=== PATIENT | female | born 1990 ===

== ENCOUNTER 2019-01-19 13:39 | Observation (INO) ==
[2019-01-19 14:53] LABS: Basophils % 0.3 %; Eosinophils # 0.2 K/mcL (0.0-0.6); Eosinophils % 1.7 %; Hematocrit 38.2 % (35.3-44.9); Hemoglobin 12.7 g/dL (11.5-15.4); Immature Granulocytes % 0.9 % (0-4); Lymphocytes # 1.6 K/mcL (0.6-4.6); Lymphocytes % 13.6 %; Mean Corpuscular HGB Conc 33.2 g/dL (31.6-35.5); Mean Corpuscular Hemoglobin 29.4 pg (28.0-33.3); Mean Corpuscular Volume 88.4 fL (83.0-100.0); Mean Platelet Volume 10.3 fL (9.4-12.4); Monocytes # 0.6 K/mcL (0.0-1.3); Monocytes % 5.6 %; Platelet Count 249 K/mcL (140-400); Red Blood Count 4.32 M/mcL (3.82-4.97); Red Cell Distribution Width 13.3 % (11.5-14.5); Segmented Neutrophils % 77.9 %
[2019-01-19 15:42] LABS: Alanine Aminotransferase 8 Units/L (7-52); Aspartate Amino Transferase 12 Units/L (13-39); BUN/Creatinine Ratio 15 (6-26); Blood Urea Nitrogen 8 mg/dL (6-20); Lactate Dehydrogenase 116 Units/L (140-271); Uric Acid 5.5 mg/dL (2.3-7.6); eGFR For Non-African Americans > 60 (> 60)
[2019-01-19 15:43] LABS: Amphetamine Screen,Urine Negative ng/mL (Cutoff=1000); Barbiturate Screen,Urine Negative ng/mL (Cutoff=200); Benzodiazepines Screen,Urine Negative ng/mL (Cutoff=200); Cannabinoid Screen,Urine Negative ng/mL (Cutoff = 50); Cocaine Screen,Urine Negative ng/mL (Cutoff= 300); Opiate Screen,Urine Negative ng/mL (Cutoff=300); Phencyclidine Screen,Urine Negative ng/mL (Cutoff=25)
[2019-01-19] MEDS ORDERED: Betamethasone Acet/SodPhos 30 MG/5 ML VIAL IM SCH (16:30)
[2019-01-19 17:28] LABS: Protein/Creatinine Ratio,Urine 0.18 mg/mg (0.00-0.20)
--- NOTE | 2019-01-19 18:36 | Discharge Summary ---
Date of Encounter: 01/19/19 Time of Encounter: 18:35 - Discharge Diagnosis (1) 28 weeks gestation of Priority: Primary Status: Acute Comments: Follow-up with Dr. Moreno as scheduled on January 28 Betamethasone given IM 1 and patient is to return tomorrow for her second dose to labor and delivery Discharge home (2) Gestational hypertension Priority: Secondary Status: Acute Comments: PIH evaluation was fully negative Start labetalol 200 mg twice a day by mouth Keep follow-up appointment with Dr. Moreno next week Return for headache, blurry vision, right upper quadrant pain Qualifiers: Trimester: third trimester Qualified Code(s): O13.3 - Gestational [-induced] hypertension without significant proteinuria, third trimester - Discharge Medications Prescriptions: New Betamethasone Acet/SodPhos [Celestone Soluspan] 12 mg IM Q24H vial Labetalol HCl 200 mg PO BID #60 tablet Continued Vit Calc,Iron,Folic [ Vitamins] 1 tab PO DAILY Aspirin [Lo-Dose Aspirin EC] 81 mg PO DAILY Home Medications: Vit Calc,Iron,Folic [ Vitamins] 1 tab PO DAILY 11/17/15 [History] Aspirin [Lo-Dose Aspirin EC] 81 mg PO DAILY 01/19/19 [History] Betamethasone Acet/SodPhos [Celestone Soluspan] 12 mg IM Q24H vial 01/19/19 [Rx] Labetalol HCl 200 mg PO BID #60 tablet 01/19/19 [Rx] Allergies/Adverse Reactions: Allergy/AdvReac Type Severity Reaction Status Date / Time No Known Allergies Allergy Verified 11/17/15 15:06 Data Procedures and tests throughout hospitalization: Laboratory Tests 01/19/19 01/19/19 01/19/19 04:00 14:15 14:15 WBC 11.5 H RBC 4.32 Hgb 12.7 Hct 38.2 MCV 88.4 MCH 29.4 MCHC 33.2 RDW 13.3 Plt Count 249 MPV 10.3 Immature Gran % 0.9 Seg Neutrophils % 77.9 Lymphocytes % 13.6 Monocytes % 5.6 Eosinophils % 1.7 Basophils % 0.3 Neutrophils # 9.0 H Lymphocytes # 1.6 Monocytes # 0.6 Eosinophils # 0.2 Basophils # 0.0 BUN Creatinine Est GFR ( Amer) Est GFR (Non-Af Amer) BUN/Creatinine Ratio Uric Acid AST ALT Lactate Dehydrogenase Urine Creatinine 191 Protein/Creatinin Ratio 0.18 Urine Total Protein 34 H Urine Opiates Screen Negative Ur Barbiturates Screen Negative Ur Phencyclidine Scrn Negative Ur Amphetamines Screen Negative U Benzodiazepines Scrn Negative Urine Cocaine Screen Negative U Marijuana (THC) Screen Negative Ur Drug Screen Interp See Below 01/19/19 14:15 WBC RBC Hgb Hct MCV MCH MCHC RDW Plt Count MPV Immature Gran % Seg Neutrophils % Lymphocytes % Monocytes % Eosinophils % Basophils % Neutrophils # Lymphocytes # Monocytes # Eosinophils # Basophils # BUN 8 Creatinine 0.54 L Est GFR ( Amer) > 60 Est GFR (Non-Af Amer) > 60 BUN/Creatinine Ratio 15 Uric Acid 5.5 AST 12 L ALT 8 Lactate Dehydrogenase 116 L Urine Creatinine Protein/Creatinin Ratio Urine Total Protein Urine Opiates Screen Ur Barbiturates Screen Ur Phencyclidine Scrn Ur Amphetamines Screen U Benzodiazepines Scrn Urine Cocaine Screen U Marijuana (THC) Screen Ur Drug Screen Interp Labs on day of discharge: Labs from last 24 hours 01/19/19 01/19/19 01/19/19 14:15 14:15 14:15 WBC 11.5 H RBC 4.32 Hgb 12.7 Hct 38.2 MCV 88.4 MCH 29.4 MCHC 33.2 RDW 13.3 Plt Count 249 MPV 10.3 Immature Gran % 0.9 Seg Neutrophils % 77.9 Lymphocytes % 13.6 Monocytes % 5.6 Eosinophils % 1.7 Basophils % 0.3 Neutrophils # 9.0 H Lymphocytes # 1.6 Monocytes # 0.6 Eosinophils # 0.2 Basophils # 0.0 BUN 8 Creatinine 0.54 L Est GFR ( Amer) > 60 Est GFR (Non-Af Amer) > 60 BUN/Creatinine Ratio 15 Uric Acid 5.5 AST 12 L ALT 8 Lactate Dehydrogenase 116 L Urine Creatinine Protein/Creatinin Ratio Urine Total Protein Urine Opiates Screen Negative Ur Barbiturates Screen Negative Ur Phencyclidine Scrn Negative Ur Amphetamines Screen Negative U Benzodiazepines Scrn Negative Urine Cocaine Screen Negative U Marijuana (THC) Screen Negative Ur Drug Screen Interp See Below 01/19/19 04:00 WBC RBC Hgb Hct MCV MCH MCHC RDW Plt Count MPV Immature Gran % Seg Neutrophils % Lymphocytes % Monocytes % Eosinophils % Basophils % Neutrophils # Lymphocytes # Monocytes # Eosinophils # Basophils # BUN Creatinine Est GFR ( Amer) Est GFR (Non-Af Amer) BUN/Creatinine Ratio Uric Acid AST ALT Lactate Dehydrogenase Urine Creatinine 191 Protein/Creatinin Ratio 0.18 Urine Total Protein 34 H Urine Opiates Screen Ur Barbiturates Screen Ur Phencyclidine Scrn Ur Amphetamines Screen U Benzodiazepines Scrn Urine Cocaine Screen U Marijuana (THC) Screen Ur Drug Screen Interp Date of admission: 01/19/19 13:39 Primary care physician: PCP NONE Discharging clinician: Anais Freeman Anticipated date of discharge: 01/19/19 - Patient Status Disposition: Home, Self-Care Condition: Good Functional capacity at discharge: independent ambulation Overall status at discharge: patient is progressing back to baseline - Discharge Instructions Follow Up With: NONE,PCP [Primary Care Provider] - Shannan Moreno DO [Partnered Physician] - - Diet and Activity Activity: increase activity as tolerated Diet: regular diet 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 She endorses good movement and denies leakage of fluid, vaginal bleeding, contractions. PIH lab evaluation was negative. Patient was given 200 mg of labetalol by mouth 1 while on the unit and near severe range blood pressures were reduced to mild range. Patient was discharged home with a prescription and strict instructions for follow-up. She is also given a dose of steroids while here and will return tomorrow to receive the second dose. Time Attestation: Total time spent providing and/or coordinating discharge services: Time Spent: Less than 30 minutes Exam - Constitutional General appearance IM: A&O X 3, morbidly obese, pleasant, no acute distress, answers questions appropriately - Respiratory Respiratory exam: Present: CTAB - Cardiovascular Cardiovascular exam IM: Present: RRR, +S1, +S2 - GI/Abdominal GI/Abdominal exam IM: normal bowel sounds, no peritoneal signs - Rectal Rectal exam: deferred - Uterine Tone: Firm - Extremities Exam Extremities exam IM: Present: full ROM, normal capillary refill, normal inspection, pedal edema, radial pulses palpable and symmetrical - Neurological Exam Neurological exam: alert, CN II-XII intact, normal gait, oriented X3, reflexes normal, no focal deficits, strengths equal and symetr throughout - VTE Reasons for not Prescribing Prophylaxis: Treatment not Indicated - Low risk for VTE
== END 2019-01-19 18:42 | disposition home or self-care (01) ==
LOC: 1NENULAB
PROVIDERS: ADMIT Advanced Practice Midwife; ATTEND Advanced Practice Midwife

== ENCOUNTER 2019-03-21 09:56 | Inpatient (IN) ==
[2019-03-21] MEDS ORDERED: Famotidine 20 MG/2 ML VIAL IVP PRN (10:32)
[2019-03-21] MEDS ORDERED: Metoclopramide 10 MG/2 ML VIAL IVP PRN (10:32)
[2019-03-21] MEDS ORDERED: Ringers Solution, Lactated 1,000 ML IVC SCH (10:45)
[2019-03-21 11:00] LABS: Basophils % 0.3 %; Eosinophils # 0.1 K/mcL (0.0-0.6); Eosinophils % 1.1 %; Hematocrit 37.8 % (35.3-44.9); Hemoglobin 12.6 g/dL (11.5-15.4); Immature Granulocytes % 0.9 % (0-4); Lymphocytes # 1.6 K/mcL (0.6-4.6); Lymphocytes % 15.2 %; Mean Corpuscular HGB Conc 33.3 g/dL (31.6-35.5); Mean Corpuscular Hemoglobin 30.1 pg (28.0-33.3); Mean Corpuscular Volume 90.4 fL (83.0-100.0); Mean Platelet Volume 10.6 fL (9.4-12.4); Monocytes # 0.6 K/mcL (0.0-1.3); Monocytes % 5.8 %; Platelet Count 259 K/mcL (140-400); Red Blood Count 4.18 M/mcL (3.82-4.97); Red Cell Distribution Width 13.7 % (11.5-14.5); Segmented Neutrophils % 76.7 %; White Blood Count 10.4 K/mcL (4.3-11.1)
[2019-03-21 11:06] LABS: Amphetamine Screen,Urine Negative ng/mL (Cutoff=1000); Barbiturate Screen,Urine Negative ng/mL (Cutoff=200); Benzodiazepines Screen,Urine Negative ng/mL (Cutoff=200); Cannabinoid Screen,Urine Negative ng/mL (Cutoff = 50); Cocaine Screen,Urine Negative ng/mL (Cutoff= 300); Opiate Screen,Urine Negative ng/mL (Cutoff=300); Phencyclidine Screen,Urine Negative ng/mL (Cutoff=25)
--- NOTE | 2019-03-21 11:08 | Anesthesia Evaluation PreOp ---
Date of Encounter: 03/21/19 Time of Encounter: 11:03 - Past History Planned Operation: repeat csection Cardiac History: HTN (Hx preeclampsia) Pulmonary History: Denies Any Significant HX SHIELD RUNNER History: Denies Any Significant HX Other Medical History: Diabetes Type II Anesthesia History: No Prior Anesthetic Complications, Past Anesthesia : Yes (37+3 wks, ) Alcohol Use: none Drug use: none Medications and Allergies Vit Calc,Iron,Folic [ Vitamins] 1 tab PO DAILY 11/17/15 [History] Aspirin [Lo-Dose Aspirin EC] 81 mg PO DAILY 01/19/19 [History] Labetalol HCl 200 mg PO BID #60 tablet 01/19/19 [Rx] Allergy/AdvReac Type Severity Reaction Status Date / Time No Known Allergies Allergy Verified 11/17/15 15:06 - Meds/Allergy Pre-op Review Medications Reviewed: Yes Allergies Reviewed: Yes Beta Blockers on Current Med List: No Anesthesia Results - Labs 03/21/19 10:30 Anesthesia Exam O2 Sat Height 1.68 m Height 1.68 m Weight 133.6 kg Weight 134 kg Height: 66 Weight: 294 NPO (# of Hours): greater than 8 hours - HEENT Pupil (Motor): Pupils equal Mallampati: IV Teeth: Normal Oral Opening: Greater than 3 - SHIELD RUNNER LOC: Oriented SHIELD RUNNER Motor: Normal RUE, Normal LUE, Normal RLE, Normal LLE, Normal Face SHIELD RUNNER Sensory: Normal: RUE, LUE, RLE, LLE, Face - Cardiac Rhythm: Regular Murmur: None JVD: No Carotid Bruit: No - Pulmonary Breath Sounds: bilateral Clear Respiratory Effort: Symmetrical Anesthesia Assess/Plan ASA Score: 3 Level of consciousness: Cooperative Anesthetic Plan: General (Plan B), Spinal (plan A) Monitoring Plan: Standard Monitors
[2019-03-21 11:16] LABS: Alanine Aminotransferase 20 Units/L (7-52); Aspartate Amino Transferase 18 Units/L (13-39); BUN/Creatinine Ratio 11 (6-26); Blood Urea Nitrogen 8 mg/dL (6-20); Lactate Dehydrogenase 120 Units/L (140-271); Uric Acid 7.1 mg/dL (2.3-7.6); eGFR For African Americans > 60 (> 60); eGFR For Non-African Americans > 60 (> 60)
[2019-03-21] MEDS ORDERED: CeFAZolin Syr 3,000MG/30 ML 3,000 MG/30 ML SYRINGE IVPB ONE (11:16)
[2019-03-21] MEDS ORDERED: Ringers Solution, Lactated 1,000 ML IVC ONE (11:16)
[2019-03-21 11:17] LABS: Protein/Creatinine Ratio,Urine 0.16 mg/mg (0.00-0.20)
[2019-03-21] MEDS ORDERED: Azithromycin 500 MG in D5% in Water 250 ML IVPB ONE ×2 (11:17→12:00)
--- NOTE | 2019-03-21 11:20 | OB/GYN History & Physical ---
Date of Encounter: 03/21/19 Time of Encounter: 11:15 Assessment and Plan (1) 37 weeks gestation of Current visit: Yes Status: Acute (2) History of pre-eclampsia in prior , currently in third trimester Current visit: Yes Status: Acute The patient has been on baby aspirin since first trimester. She is asymptomatic and her blood pressure has been well controlled on 200 mg of labetalol twice a day's in 628 weeks. Her ultrasounds have been reassuring for growth and amniotic fluid. Per ACOG recommendation she is scheduled for delivery at 37 weeks (3) Previous delivery affecting , antepartum Current visit: Yes Status: Acute Patient has given informed consent for a repeat section, declines trial of labor (4) Tubal ligation evaluation Current visit: Yes Status: Acute The patient has signed consent for bilateral partial salpingectomy (5) Gestational hypertension Current visit: Yes Status: Acute Patient became symptomatic at 28 weeks, blood pressures currently well- controlled with 200 mg of labetalol twice daily. Clinically asymptomatic. Patient has been scheduled for a repeat due to recommendation of delivery at 37 weeks per ACOG recommendations Qualifiers: Trimester: third trimester Qualified Code(s): O13.3 - Gestational [-induced] hypertension without significant proteinuria, third trimester History of Present Illness Chief complaint: Rpt C/S HPI: Ms. Kelly is a 28 year old female with an EDC of 04/08/19 confirmed by a 9 week ultrasound who presents for a scheduled repeat section at 37 weeks and 3 days for gestational hypertension per ACOG guidelines. The patient's has been complicated by history of preeclampsia, spontaneous , initial BMI of 47.9 and a history of a previous section for breech presentation with her last . She had glucose intolerance as one abnormal on her 3 hour GTT. She had a normal NT and sequential testing. She had onset of gestational hypertension at 28 weeks which has been well- controlled, patient currently now on labetalol 200 mg twice a day. She was started on baby aspirin in the first trimester due to her history of preeclampsia. The patient has been counseled as to her options for trial of labor versus repeat and she is requesting a section. She has signed informed consent for a tubal ligation and is aware of the risks and benefits. Her last ultrasound showed an estimated weight of 7 pounds, 85% growth with an JOSH of 15.9 on 03/12/19. Patient has not gained any weight during the . Her lab work includes a blood type that is O+, rubella immune, varicella equivocal, hepatitis B surface antigen negative, syphilis screen negative. She is GBS negative. She has a male fetus on board, reports an active fetus, no cramping or bleeding, denies any new or recent onset of headaches or blurred vision. She has mild lower extremity edema which is unchanged. Past Med Surg Social Fam HX - Past Medical History Source: patient, old records reviewed Medical history: asthma (In childhood, no longer active problem) Additional medical history: asthma in childhood - resolved Psychiatric history: anxiety - Past Surgical History Surgical History: Additional surgical history: C/S 11/17/2015 - breech - Social History Smoking Status: Never smoker Smokeless Tobacco Status: No Alcohol use: none Drug use: none - Family History Mother Adopted: No Living Status: Still Living Hx Family Cardiac Disorders: Yes (htn) Hx Family Endocrine Disorder: Yes (diabetes) Obstetrical History - Pregnancies : 4 Term: 2 Ab's: 1 Livin Medications and Allergies Vit Calc,Iron,Folic [ Vitamins] 1 tab PO DAILY 11/17/15 [History] Aspirin [Lo-Dose Aspirin EC] 81 mg PO DAILY 01/19/19 [History] Labetalol HCl 200 mg PO BID #60 tablet 01/19/19 [Rx] Allergy/AdvReac Type Severity Reaction Status Date / Time No Known Allergies Allergy Verified 11/17/15 15:06 Review of System OB All systems PM: reviewed and no additional remarkable complaints except as stated - Constitutional Constitutional ROS IM: as per HPI - Cardiovascular Cardiovascular: as per HPI - Genitourinary Genitourinary: as per HPI - Menstruation Menstruation: as per HPI - Endocrine Endocrine: as per HPI Exam - Vital Signs Vital signs: Afebrile, vital signs stable - Constitutional Constitutional: well developed, well nourished, no acute distress, morbidly obese - HEENT HEENT: Normocephaly, Mucus Membranes Moist - Neck Neck exam: normal inspection, supple - Lungs Respiratory exam: CTAB - Cardiovascular Cardiovascular exam: RRR - Abdomen Abdomen: Present: bowel sounds normal, gravid, non tender - Extremities Extremities exam: pedal edema, warm Deep Tendon Reflex Grade: 3+ Normal But Brisk - Anus/Rectum Anus/Rectum: Present: normal perianal skin Results Result Diagrams: 03/21/19 10:30 All other labs normal. - VTE Documentation of Mechanical Device: Intermittent pneumatic compression device
[2019-03-21] MEDS ORDERED: *HR* Morphine Sulfate/PF 10 MG/10 ML AMPUL ONE (11:46)
[2019-03-21] MEDS ORDERED: *HR* FentaNYL (PF) 100 MCG/2 ML VIAL ONE (11:46)
[2019-03-21] MEDS ORDERED: *HR* Phenylephrine 10 MG/ML VIAL ONE (13:09)
[2019-03-21] MEDS ORDERED: *HR* Oxytocin 10 UNIT/ML VIAL IM ONE (13:09)
[2019-03-21] MEDS ORDERED: Ringers Solution, Lactated 2,000 ML ONE (13:09)
[2019-03-21] MEDS ORDERED: Ondansetron 4 MG/2 ML VIAL ONE (13:09)
[2019-03-21] MEDS ORDERED: Acetaminophen IV 1,000 MG/100 ML INFUS..BTL IVPB ONE (13:50)
[2019-03-21] MEDS ORDERED: *HR* OxyCODONE Immed Rel 5 MG TABLET PO PRN (13:50)
[2019-03-21] MEDS ORDERED: *HR* HYDROmorphone (PF) 1 MG/ML SYRINGE IVP PRN (13:50)
--- NOTE | 2019-03-21 14:53 | OB/GYN Procedure Note ---
Section - Date of procedure: 03/21/19 Preop diagnosis: desires repeat , desires sterilization, other (Gestational hypertension on labetalol, BMI 47) Post-op diagnosis: same (Omental adhesions, lower uterine anterior abdominal adhesions) Procedure: section, repeat low transverse, bilateral tubal ligation, other (Adhesiolysis of omentum and lower uterus) Surgeon: Brittany Barillas Blood Loss: 600 Was there an drilling assistant present: No Anesthesiologist: Rodolfo Vega Truck Driver Flatbed: Giuseppe Joel Anesthesia Type: Spinal section complications: none Disposition: L&D Recovery Room Specimens: Placenta, Cord blood, Right tube segment, Left tube segment - Infant (s) A Infant Delivery Date: 03/21/19 Delivery Time: 13:01 Presentation: vertex Position: MELANIE Route of delivery: other Gender: Male Viability: Viable Pounds: 7 Ounces: 14 Gram Weight: 3.58 kg at 1 minute: 8 at 5 minutes: 9 Shoulder Dystocia: not encountered Specimens collected: cord blood Placenta: spontaneous, uterine exploration Cord: nuchal cord, 3 umbilical vessels, nuchal reduced - Narrative Narrative: The patient was taken to the operating room and given spinal anesthesia adequate for abdominal and pelvic surgery. She was prepped and draped in the usual sterile fashion. Timeout was completed. A Pfannenstiel skin incision was made through the previous scar. The subcutaneous tissue was then sharply dissected down to the fascia. The fascia was incised in the midline and extended bilatera lly. 2 straight Tara clamps were placed on the inferior fascial edge and the fascia was bluntly and sharply dissected away from the rectus muscles. This was repeated superiorly. The rectus muscles were bluntly bissected. Peritoneum was bluntly entered. Superiorly, there were omental adhesions along the midline and anteriorly which were lysed with the Bovie, hemostasis achieved. Once the ome ntal adhesions were lysed a moist last one was used to pack the omentum cephalad. On the lower portion of the midline incision the uterus was adherent to the anterior abdominal wall. The Metzenbaum scissors were used to dissect in the midline to separate the uterine wall from the anterior abdominal wall bluntly. A plane was then created. The vesicouterine reflection was unable to be identified below uterine adhesions. The uterine adhesions were lysed sharply and then the bladder blade was incised in the midline, extended laterally bilaterally. The bladder blade was placed to protect the bladder. A low transverse incision was then made through the lower uterine segment down to the amnion. This was extended with bandage scissors in a U fashion.. The amnion was bluntly entered and clear fluid noted. This was followed by the vertex delivery of a viable The was placed on the maternal abdomen and bulb suctioned. The cord was clamped and cut after a delay. Infant was handed to the nursery care team. Cord blood was obtained. The placenta was delivered spontaneous and intact. The uterine cavity was digitally palpated and wiped clean with a moist lap sponge. There were no placental remnants identified. A ring forcep is used to dilate the cervix and then discarded off the field. Clamps were placed on the uterine angles and the uterine incision was closed u sing 0 Vicryl suture in a running, locking fashion. A second imbricating layer completed the uterine closure with 0 Vicryl suture. 0 Vicryl in [id number] fashion was used on the incision for hemostasis. An 0 Vicryl was used to reapproximate the edge of the bladder to the superior margin of the incision. An area that was superior to the incision that was involved in the adhesions was not hemostatic despite cautery with the Bovie, and 0 Vicryl suture is used to run the edges of this together in a running locking fashion. Good hemostasis was achieved. Attention was then placed on the fallopian tubes. The tubes and ovaries appeared grossly normal bilaterally with no tubo-ovarian adhesions noted bilaterally. The left fallopian tube was grasped with a Vivi clamp and O- plain suture was used to doubly ligate a proximal loop of tube. The loop of tube was then excised and sent to pathology. Good hemostasis was noted in the tubal lumens. This was repeated for the patient's right side. Again good hemostasis noted in the tubal lumens. The uterus was then examined and noted to be hemostatic. The pelvis was then irrigated with sterile water. Gloves were changed. Hemostasis was identified. The peritoneal edges and rectus muscles were then examined and hemostasis achieved. There was no identified areas of bleeding but there was some oozing, patient had been on a baby aspirin, so Juan J was placed in the pelvis. The fascia was then closed using an 0 PDS loop in a running nonlocking fashion. Subcutaneous tissue was irrigated with sterile water, good hemostasis was achieved. Subcutaneous layer was closed with 0- stratofix. The skin was then closed using 4-0 Monocryl in a running subcuticular fashion. OUSMANE ressing applied. The Blake was noted to be draining clear yellow urine at the end of the procedure. All sponge and instrument counts are correct at the end of the procedure. The patient was taken to the recovery room in stable condition. Whole procedure took an additional 60-75 minutes due to the patient's BMI of 47 causing difficulty of exposure and multiple areas of adhesions that were lysed.
[2019-03-21] MEDS ORDERED: Simethicone 80 MG TAB.CHEW PO PRN (16:13)
[2019-03-21] MEDS ORDERED: Rho Immune Globulin 1,500 UNIT SYRINGE IM ONE (16:13)
[2019-03-21] MEDS ORDERED: Oxytocin 20 units/ LR 1000 mL 20 UNIT/1,000 ML BAG IVC SCH (16:13)
[2019-03-21] MEDS ORDERED: Ondansetron 4 MG/2 ML VIAL IVP PRN (16:13)
[2019-03-21] MEDS ORDERED: Oxytocin 20 units/ LR 1000 mL 20 UNIT/1,000 ML BAG IVC ONE (16:16)
[2019-03-21] MEDS: metroNIDAZOLE 500 MG TABLET PO SCH ×2 (17:30→20:15)
[2019-03-21] MEDS: Ibuprofen 600 MG TABLET PO SCH (17:31)
[2019-03-21] MEDS: cephALEXin 500 MG CAPSULE PO SCH ×2 (17:31→20:15)
--- NOTE | 2019-03-21 17:31 | Anesthesia Evaluation Post Op ---
Date of Encounter: 03/21/19 Time of Encounter: 17:31 - Vital Signs Vital Signs: Vital Signs/O2 Sat, Most Current Temp Pulse Resp BP Pulse Ox 98.2 F 82 16 122/71 96 03/21/19 17:00 03/21/19 17:00 03/21/19 17:00 03/21/19 17:00 03/21/19 17:00 - Lungs Lungs: Clear Ascult./Percussion - Airway Airway: Non-obstructed - Cardiovascular Regular Rate - Mental Status Mental Status: Alert & Oriented, Answers Appropriately - Pain Pain Scale: 4 - Nausea Vomiting Nausea Vomiting: Not Present - Hydration Hydration: NPO, Blake catheter - Discharge PostOp Status: Transfer Patient to floor
[2019-03-21] MEDS ORDERED: Acetaminophen 325 MG TABLET PO PRN (18:00)
[2019-03-22] MEDS: Ibuprofen 600 MG TABLET PO SCH ×4 (00:40→17:39)
[2019-03-22 05:44] LABS: Basophils % 0.2 %; Eosinophils # 0.1 K/mcL (0.0-0.6); Eosinophils % 1.2 %; Immature Granulocytes % 0.7 % (0-4); Lymphocytes # 1.2 K/mcL (0.6-4.6); Lymphocytes % 13.4 %; Mean Corpuscular HGB Conc 33.1 g/dL (31.6-35.5); Mean Corpuscular Hemoglobin 29.9 pg (28.0-33.3); Mean Corpuscular Volume 90.4 fL (83.0-100.0); Mean Platelet Volume 10.2 fL (9.4-12.4); Monocytes # 0.6 K/mcL (0.0-1.3); Monocytes % 6.9 %; Neutrophils # 6.6 K/mcL (1.6-8.9); Platelet Count 193 K/mcL (140-400); Red Blood Count 3.54 M/mcL (3.82-4.97); Red Cell Distribution Width 13.8 % (11.5-14.5); Segmented Neutrophils % 77.6 %; White Blood Count 8.6 K/mcL (4.3-11.1)
[2019-03-22 05:46] LABS: Hemoglobin 10.6 g/dL (11.5-15.4)
[2019-03-22] MEDS: Prenatal Vit/FA 1 EACH TABLET PO SCH (09:10)
[2019-03-22] MEDS: cephALEXin 500 MG CAPSULE PO SCH ×3 (09:11→20:20)
[2019-03-22] MEDS: metroNIDAZOLE 500 MG TABLET PO SCH ×3 (09:11→20:20)
[2019-03-22] MEDS: *HR* OxyCODONE Immed Rel 5 MG TABLET PO PRN ×2 (12:45→19:05)
--- NOTE | 2019-03-22 13:07 | OB/GYN Progress Note ---
Date of Encounter: 03/22/19 Time of Encounter: 13:04 - Assessment and Plan (1) Status post delivery Current Visit: Yes Status: Acute Patient meeting day one milestones pain well controlled Voiding without difficulty Lochia moderate No bowel movements, passing gas (2) Breast feeding status of mother Current Visit: Yes Status: Acute support as needed. Breast pump at home. Subjective - Subjective Principal diagnosis: S/P cessarian section Interval history: - Date of procedure: 03/21/19 Preop diagnosis: desires repeat , desires sterilization, other (Gestational hypertension on labetalol, BMI 47) Post-op diagnosis: same (Omental adhesions, lower uterine anterior abdominal adhesions) Procedure: section, repeat low transverse, bilateral tubal ligation, other (Adhesiolysis of omentum and lower uterus) Surgeon: Brittany Barillas Blood Loss: 600 Was there an assistant center director present: No Anesthesiologist: Rodolfo Vega Candy Dipper: Giuseppe Joel Anesthesia Type: Spinal section complications: none Disposition: L&D Recovery Room Specimens: Placenta, Cord blood, Right tube segment, Left tube segment - (s) A Delivery Date: 03/21/19 Delivery Time: 13:01 Presentation: vertex Position: MELANIE Route of delivery: other Gender: Male Viability: Viable Pounds: 7 Ounces: 14 Gram Weight: 3.58 kg at 1 minute: 8 at 5 minutes: 9 Shoulder Dystocia: not encountered Specimens collected: cord blood Placenta: spontaneous, uterine exploration Cord: nuchal cord, 3 umbilical vessels, nuchal reduced - Narrative Narrative: The patient was taken to the operating room and given spinal anesthesia adequate for abdominal and pelvic surgery. She was prepped and draped in the usual sterile fashion. Timeout was completed. A Pfannenstiel skin incision was made through the previous scar. The subcutaneous tissue was then sharply dissected down to the fascia. The fascia was incised in the midline and extended bilaterally. 2 straight Wildwood clamps were placed on the inferior fascial edge and the fascia was bluntly and sharply dissected away from the rectus muscles. This was repeated superiorly. The rectus muscles were bluntly bissected. Peritoneum was bluntly entered. Superiorly, there were omental adhesions along the midline and anteriorly which were lysed with the Bovie, hemostasis achieved. Once the omental adhesions were lysed a moist last one was used to pack the omentum cephalad. On the lower portion of the midline incision the uterus was adherent to the anterior abdominal wall. The Metzenbaum scissors were used to dissect in the midline to separate the uterine wall from the anterior abdominal wall bluntly. A plane was then created. The vesicouterine reflection was unable to be identified below uterine adhesions. The uterine adhesions were lysed sharply and then the bladder blade was incised in the midline, extended laterally bilaterally. The bladder blade was placed to protect the bladder. A low transverse incision was then made through the lower uterine segment down to the amnion. This was extended with bandage scissors in a U fashion.. The amnion was bluntly entered and clear fluid noted. This was followed by the vertex delivery of a viable The was placed on the maternal abdomen and bulb suctioned. The cord was clamped and cut after a delay. was handed to the nursery care team. Cord blood was obtained. The placenta was delivered spontaneous and intact. The uterine cavity was digitally palpated and wiped clean with a moist lap sponge. There were no placental remnants identified. A ring forcep is used to dilate the cervix and then discarded off the field. Clamps were placed on the uterine angles and the uterine incision was closed using 0 Vicryl suture in a running, locking fashion. A second imbricating layer completed the uterine closure with 0 Vicryl suture. 0 Vicryl in [id number] fashion was used on the incision for hemostasis. An 0 Vicryl was used to reapproximate the edge of the bladder to the superior margin of the incision. An area that was superior to the incision that was involved in the adhesions was not hemostatic despite cautery with the Bovie, and 0 Vicryl suture is used to run the edges of this together in a running locking fashion. Good hemostasis was achieved. Attention was then placed on the fallopian tubes. The tubes and ovaries appeared grossly normal bilaterally with no tubo-ovarian adhesions noted bilaterally. The left fallopian tube was grasped with a Parma clamp and O-plain suture was used to doubly ligate a proximal loop of tube. The loop of tube was then excised and sent to pathology. Good hemostasis was noted in the tubal lumens. This was repeated for the patient's right side. Again good hemostasis noted in the tubal lumens. The uterus was then examined and noted to be hemostatic. The pelvis was then irrigated with sterile water. Gloves were changed. Hemostasis was identified. The peritoneal edges and rectus muscles were then examined and hemostasis achieved. There was no identified areas of bleeding but there was some oozing, patient had been on a baby aspirin, so Juan J was placed in the pelvis. The fascia was then closed using an 0 PDS loop in a running nonlocking fashion. Subcutaneous tissue was irrigated with sterile water, good hemostasis was achieved. Subcutaneous layer was closed with 0-stratofix. The skin was then closed using 4-0 Monocryl in a running subcuticular fashion. OUSMANE ressing applied. The Blake was noted to be draining clear yellow urine at the end of the procedure. All sponge and instrument counts are correct at the end of the procedure. The patient was taken to the recovery room in stable condition. Whole procedure took an additional 60-75 minutes due to the patient's BMI of 47 causing difficulty of exposure and multiple areas of adhesions that were lysed. Patient reports: appetite normal, voiding normally, pain well controlled, ambulating normally : doing well Objective - Vital Signs Latest vital signs: Vital Signs Temp Pulse Resp BP Pulse Ox 03/22/19 08:23 97.8 F 91 16 131/78 96 03/22/19 04:25 98 F 71 16 131/78 96 03/22/19 00:38 98.1 F 83 16 123/69 96 03/21/19 20:08 98.3 F 81 16 120/73 97 03/21/19 18:40 98.1 F 83 16 116/70 96 03/21/19 17:30 97.9 F 81 16 117/69 97 03/21/19 17:00 98.2 F 82 16 122/71 96 03/21/19 16:42 98.4 F 84 16 129/74 97 Intake and Output 03/21/19 03/22/19 03/22/19 23:59 07:59 15:59 Intake Total 740 / 740 Output Total 600 / 600 300 / 400 100 / 400 Balance -600 / -600 -300 / 340 640 / 340 Intake: Oral 740 / 740 Output: Urine 100 / 100 Catheter 600 / 600 300 / 300 Other: Meal Breakfast Percent of Meal Consumed 100% Weight 132.812 kg Patient Weight 03/22/19 23:59 Weight 132.812 kg - Exam Lungs: bilateral: normal Chest: Normal S1, Normal S2 Extremities: Present: normal Abdomen: Present: normal appearance, soft. Absent: distention, tenderness Incision: Present: dressed Uterus: Present: normal, firm - Labs Labs: Laboratory Results - last 24 hr 03/22/19 05:28 WBC 8.6 RBC 3.54 L Hgb 10.6 L D Hct 32.0 L MCV 90.4 MCH 29.9 MCHC 33.1 RDW 13.8 Plt Count 193 MPV 10.2 Immature Gran % 0.7 Seg Neutrophils % 77.6 Lymphocytes % 13.4 Monocytes % 6.9 Eosinophils % 1.2 Basophils % 0.2 Neutrophils # 6.6 Lymphocytes # 1.2 Monocytes # 0.6 Eosinophils # 0.1 Basophils # 0.0
[2019-03-23] MEDS: Ibuprofen 600 MG TABLET PO SCH ×2 (02:51→09:30)
[2019-03-23] MEDS: *HR* OxyCODONE Immed Rel 5 MG TABLET PO PRN (02:51)
[2019-03-23 07:57] VITALS: BP 140/91
[2019-03-23] MEDS: cephALEXin 500 MG CAPSULE PO SCH (08:07)
[2019-03-23] MEDS: Prenatal Vit/FA 1 EACH TABLET PO SCH (08:07)
[2019-03-23] MEDS: metroNIDAZOLE 500 MG TABLET PO SCH (08:07)
--- NOTE | 2019-03-23 08:47 | Discharge Summary ---
Date of Encounter: 03/23/19 Time of Encounter: 08:44 - Discharge Diagnosis (1) Status post tubal ligation Priority: Secondary Status: Acute (2) Gestational hypertension Priority: Secondary Status: Acute Comments: Continue labetalol as prescribed, patient to follow up in office for BP check Qualifiers: Trimester: third trimester Qualified Code(s): O13.3 - Gestational [-induced] hypertension without significant proteinuria, third trimester (3) Status post delivery Priority: Primary Status: Acute Comments: Continue routine postop/ care discharge home today follow up with Dr. Gupta in 2 weeks for incision check - Discharge Medications Prescriptions: New Ibuprofen [Motrin] 600 mg PO Q6HR #60 tablet OxyCODONE Immed Rel [Roxicodone 5 MG] 5 mg PO Q6HR PRN 5 Days #20 tablet PRN Reason: Severe Pain (7-10) Docusate [Colace] 100 mg PO BID capsule Continued Vit Calc,Iron,Folic [ Vitamins] 1 tab PO DAILY Labetalol HCl 200 mg PO BID #60 tablet Discontinued Aspirin [Lo-Dose Aspirin EC] 81 mg PO DAILY Home Medications: Vit Calc,Iron,Folic [ Vitamins] 1 tab PO DAILY 11/17/15 [History] Labetalol HCl 200 mg PO BID #60 tablet 01/19/19 [Rx] Docusate [Colace] 100 mg PO BID capsule 03/23/19 [Rx] Ibuprofen [Motrin] 600 mg PO Q6HR #60 tablet 03/23/19 [Rx] OxyCODONE Immed Rel [Roxicodone 5 MG] 5 mg PO Q6HR PRN 5 Days #20 tablet 03/23/19 [Rx] Allergies/Adverse Reactions: Allergy/AdvReac Type Severity Reaction Status Date / Time No Known Allergies Allergy Verified 11/17/15 15:06 Data Procedures and tests throughout hospitalization: Laboratory Tests 03/21/19 03/21/19 03/21/19 10:30 10:30 10:30 WBC 10.4 RBC 4.18 Hgb 12.6 Hct 37.8 MCV 90.4 MCH 30.1 MCHC 33.3 RDW 13.7 Plt Count 259 MPV 10.6 Immature Gran % 0.9 Seg Neutrophils % 76.7 Lymphocytes % 15.2 Monocytes % 5.8 Eosinophils % 1.1 Basophils % 0.3 Neutrophils # 8.0 Lymphocytes # 1.6 Monocytes # 0.6 Eosinophils # 0.1 Basophils # 0.0 BUN Creatinine Est GFR ( Amer) Est GFR (Non-Af Amer) BUN/Creatinine Ratio Uric Acid AST ALT Lactate Dehydrogenase Urine Creatinine 242 Protein/Creatinin Ratio 0.16 Urine Total Protein 39 H Urine Opiates Screen Negative Ur Buprenorphine Scrn Negative Ur Barbiturates Screen Negative Ur Phencyclidine Scrn Negative Ur Amphetamines Screen Negative U Benzodiazepines Scrn Negative Urine Cocaine Screen Negative U Marijuana (THC) Screen Negative Ur Drug Screen Interp See Below 03/21/19 03/22/19 10:30 05:28 WBC 8.6 RBC 3.54 L Hgb 10.6 L D Hct 32.0 L MCV 90.4 MCH 29.9 MCHC 33.1 RDW 13.8 Plt Count 193 MPV 10.2 Immature Gran % 0.7 Seg Neutrophils % 77.6 Lymphocytes % 13.4 Monocytes % 6.9 Eosinophils % 1.2 Basophils % 0.2 Neutrophils # 6.6 Lymphocytes # 1.2 Monocytes # 0.6 Eosinophils # 0.1 Basophils # 0.0 BUN 8 Creatinine 0.75 Est GFR ( Amer) > 60 Est GFR (Non-Af Amer) > 60 BUN/Creatinine Ratio 11 Uric Acid 7.1 AST 18 ALT 20 Lactate Dehydrogenase 120 L Urine Creatinine Protein/Creatinin Ratio Urine Total Protein Urine Opiates Screen Ur Buprenorphine Scrn Ur Barbiturates Screen Ur Phencyclidine Scrn Ur Amphetamines Screen U Benzodiazepines Scrn Urine Cocaine Screen U Marijuana (THC) Screen Ur Drug Screen Interp Date of admission: 03/21/19 09:56 Primary care physician: PCP NONE Discharging clinician: Ana Mccartney Anticipated date of discharge: 03/23/19 - Patient Status Disposition: Home, Self-Care Condition: Good Functional capacity at discharge: independent ambulation - Discharge Instructions Follow Up With: NONE,PCP [Primary Care Provider] - Brittany Gupta MD [Partnered Physician] - - Diet and Activity Activity: increase activity as tolerated Diet: regular diet Hospital Course Procedures: OARRs report reviewed prior to discharge by JESSICA Turner Reason for admission: section Delivery: section Laceration: none Other procedures: tubal ligation complications: none Discharge diagnosis: IUP at term delivered baby: male (bottle feeding) Time Attestation: Total time spent providing and/or coordinating discharge services: Time Spent: Less than 30 minutes - VTE Documentation of Mechanical Device: Intermittent pneumatic compression device Exam - Constitutional Vitals: Temp Pulse Resp BP Pulse Ox 98.0 F 101 14 140/91 96 03/23/19 07:55 03/23/19 07:55 03/23/19 07:55 03/23/19 07:55 03/23/19 07:55 General appearance IM: A&O X 3, morbidly obese, answers questions appropriately - Respiratory Respiratory exam: Present: CTAB - Cardiovascular Cardiovascular exam IM: Present: RRR, +S1, +S2 - GI/Abdominal GI/Abdominal exam IM: normal bowel sounds, no peritoneal signs Incision: normal, dressed (OUSMANE dressing) - Uterine Tone: Firm Uterus Position: 2 Fingers Below Umbilicus, Midline - Extremities Exam Extremities exam IM: Present: full ROM, normal capillary refill, normal inspection - Neurological Exam Neurological exam: alert, oriented X3, reflexes normal
== END 2019-03-23 11:46 | disposition home or self-care (01) | DRG 540 ==
LOC: 1NENULAB 09:56 → 1NENUOBS 16:29
PROVIDERS: ADMIT Obstetrics & Gynecology; ATTEND Obstetrics & Gynecology

== ENCOUNTER 2019-03-26 09:28 | Inpatient (IN) ==
[2019-03-26 10:13] LABS: Basophils # 0.1 K/mcL (0.0-0.2); Basophils % 0.6 %; Eosinophils # 0.2 K/mcL (0.0-0.6); Eosinophils % 2.8 %; Hematocrit 34.8 % (35.3-44.9); Hemoglobin 11.3 g/dL (11.5-15.4); Immature Granulocytes % 0.9 % (0-4); Lymphocytes # 1.2 K/mcL (0.6-4.6); Mean Corpuscular HGB Conc 32.5 g/dL (31.6-35.5); Mean Corpuscular Hemoglobin 29.4 pg (28.0-33.3); Mean Corpuscular Volume 90.4 fL (83.0-100.0); Monocytes # 0.5 K/mcL (0.0-1.3); Monocytes % 6.3 %; Neutrophils # 6.5 K/mcL (1.6-8.9); Platelet Count 363 K/mcL (140-400); Red Blood Count 3.85 M/mcL (3.82-4.97); Red Cell Distribution Width 13.5 % (11.5-14.5); Segmented Neutrophils % 75.4 %; White Blood Count 8.6 K/mcL (4.3-11.1)
[2019-03-26 10:30] LABS: Alanine Aminotransferase 21 Units/L (7-52); Albumin 3.4 g/dL (3.5-5.7); Albumin/Globulin Ratio 1.2 (1.1-2.2); Alkaline Phosphatase 71 Units/L (34-104); Aspartate Amino Transferase 17 Units/L (13-39); BUN/Creatinine Ratio 16 (6-26); Bilirubin,Direct 0.1 mg/dL (0.0-0.2); Bilirubin,Indirect 0.4 mg/dL (0.0-1.2); Bilirubin,Total 0.5 mg/dL (0.3-1.0); Blood Urea Nitrogen 12 mg/dL (6-20); Globulin 2.9 g/dL (2.4-3.5); Lactate Dehydrogenase 154 Units/L (140-271); Total Protein 6.3 g/dL (6.4-8.9); Troponin I < 0.03 ng/mL (< 0.04); eGFR For African Americans > 60 (> 60); eGFR For Non-African Americans > 60 (> 60)
[2019-03-26 10:31] LABS: Bilirubin,Urine Negative (Negative); Blood,Urine Large (Negative); Clarity,Urine Clear (Clear); Color,Urine Yellow (Yellow); Glucose,Urine (UA) Normal (Normal); Ketones,Urine Negative (Negative); Leukocyte Esterase,Urine Trace (Negative); Nitrite,Urine Negative (Negative); Protein,Urine Trace mg/dL (Neg-Trace); Urobilinogen,Urine Normal (Normal)
[2019-03-26 10:33] LABS: Bacteria,Urine None Seen per hpf (None-Few); Hyaline Casts,Urine None Seen per lpf (None-Few); RBC,Urine 30-50 per hpf (0-3); Squamous Epithelial Cell,Urine Many per lpf (None-Few)
[2019-03-26 10:39] LABS: Protein/Creatinine Ratio,Urine 0.25 mg/mg (0.00-0.20)
[2019-03-26] MEDS ORDERED: *HR* Labetalol 20 MG/4 ML SYRINGE IVP ONE (11:03)
[2019-03-26] MEDS ORDERED: Isovue-370 500 ML BOTTLE IVP ONE (11:04)
[2019-03-26] MEDS ORDERED: valACYclovir 500 MG TABLET PO ONE (11:05)
[2019-03-26] MEDS ORDERED: Calcium Gluconate 1,000 MG/10 ML VIAL IV PRN (15:13)
[2019-03-26] MEDS ORDERED: Ringers Solution, Lactated 1,000 ML IVC SCH (15:30)
[2019-03-26] MEDS: Magnesium Sulf 20 gm/SW 500mL 20 GM/500 ML IV.SOLN IVC SCH (16:38)
[2019-03-26] MEDS: Acetaminophen 325 MG TABLET PO PRN (18:53)
[2019-03-27] MEDS: Magnesium Sulf 20 gm/SW 500mL 20 GM/500 ML IV.SOLN IVC SCH (02:48)
[2019-03-27] MEDS ORDERED: *HR* LORazepam 2 MG/ML VIAL IVP STA (08:24)
[2019-03-27] MEDS: Acetaminophen 325 MG TABLET PO PRN ×2 (09:02→19:47)
[2019-03-27] MEDS: Ibuprofen 600 MG TABLET PO PRN ×2 (09:03→19:46)
[2019-03-27] MEDS: valACYclovir 500 MG TABLET PO SCH ×2 (09:55→21:03)
[2019-03-27 10:15] LABS: Basophils % 0.5 %; Eosinophils # 0.2 K/mcL (0.0-0.6); Eosinophils % 3.2 %; Hematocrit 36.4 % (35.3-44.9); Hemoglobin 11.9 g/dL (11.5-15.4); Immature Granulocytes % 1.1 % (0-4); Lymphocytes # 1.3 K/mcL (0.6-4.6); Lymphocytes % 17.5 %; Mean Corpuscular HGB Conc 32.7 g/dL (31.6-35.5); Mean Corpuscular Hemoglobin 30.1 pg (28.0-33.3); Mean Corpuscular Volume 91.9 fL (83.0-100.0); Mean Platelet Volume 9.7 fL (9.4-12.4); Monocytes # 0.4 K/mcL (0.0-1.3); Monocytes % 5.8 %; Neutrophils # 5.4 K/mcL (1.6-8.9); Platelet Count 379 K/mcL (140-400); Red Blood Count 3.96 M/mcL (3.82-4.97); Red Cell Distribution Width 13.2 % (11.5-14.5); Segmented Neutrophils % 71.9 %; White Blood Count 7.5 K/mcL (4.3-11.1)
[2019-03-27 10:23] LABS: Alanine Aminotransferase 18 Units/L (7-52); Aspartate Amino Transferase 16 Units/L (13-39); BUN/Creatinine Ratio 10 (6-26); Blood Urea Nitrogen 8 mg/dL (6-20); Lactate Dehydrogenase 170 Units/L (140-271); Uric Acid 9.4 mg/dL (2.3-7.6); eGFR For African Americans > 60 (> 60); eGFR For Non-African Americans > 60 (> 60)
[2019-03-27] MEDS: NIFEdipine XL (24 HR) 30 MG TAB.ER.24 PO SCH (16:17)
[2019-03-28 08:42] VITALS: BP 142/90
[2019-03-28] MEDS: NIFEdipine XL (24 HR) 30 MG TAB.ER.24 PO SCH (08:52)
[2019-03-28] MEDS: valACYclovir 500 MG TABLET PO SCH (08:53)
[2019-03-28] MEDS ORDERED: Acetaminophen/Butalbital/CaffeineTABLET PO ONE (09:43)
[2019-03-28 10:11] LABS: Basophils # 0.1 K/mcL (0.0-0.2); Basophils % 0.6 %; Eosinophils # 0.2 K/mcL (0.0-0.6); Eosinophils % 2.2 %; Hematocrit 38.5 % (35.3-44.9); Hemoglobin 12.6 g/dL (11.5-15.4); Immature Granulocytes % 0.8 % (0-4); Lymphocytes # 1.3 K/mcL (0.6-4.6); Lymphocytes % 14.5 %; Mean Corpuscular HGB Conc 32.7 g/dL (31.6-35.5); Mean Corpuscular Hemoglobin 29.3 pg (28.0-33.3); Mean Corpuscular Volume 89.5 fL (83.0-100.0); Mean Platelet Volume 9.3 fL (9.4-12.4); Monocytes # 0.4 K/mcL (0.0-1.3); Neutrophils # 6.8 K/mcL (1.6-8.9); Platelet Count 433 K/mcL (140-400); Red Cell Distribution Width 13.1 % (11.5-14.5); Segmented Neutrophils % 76.9 %; White Blood Count 8.8 K/mcL (4.3-11.1)
[2019-03-28 10:31] LABS: Alanine Aminotransferase 17 Units/L (7-52); Aspartate Amino Transferase 15 Units/L (13-39); BUN/Creatinine Ratio 13 (6-26); Blood Urea Nitrogen 9 mg/dL (6-20); Lactate Dehydrogenase 170 Units/L (140-271); Uric Acid 8.2 mg/dL (2.3-7.6); eGFR For African Americans > 60 (> 60); eGFR For Non-African Americans > 60 (> 60)
[2019-03-28] MEDS ORDERED: NIFEdipine XL (24 HR) 30 MG TAB.ER.24 PO SCH (16:05)
== END 2019-03-28 11:36 | disposition home or self-care (01) | DRG 561 ==
LOC: 1NENUOBS 09:28 → EMEROOARM 09:28 → 1NENUOBS 13:21
PROVIDERS: ADMIT Registered Nurse; ATTEND Registered Nurse